=== PATIENT | female | born 1980 | race African-American/Black ===

== ENCOUNTER 2019-11-03 18:23 | Emergency (ER) | payer OTHER, SELFPAY ==
[2019-11-03 18:31] VITALS: BP 120/65; PULSE 74; RESP 18; TEMP 35.9; O2SAT 100
--- NOTE | 2019-11-03 19:10 | ED.GENADULT ---
HPI - General Adult General Chief complaint: Urogenital-Female Stated complaint: pos kidney infection History of Present Illness HPI narrative: Patient is a 39-year-old -[place] female presents to the urgent care via POV for evaluation of urinary symptoms that began 3 days ago. Additionally, she reports dysuria, abdominal pressure, urinary frequency, and urinary urgency. She also reports multiple incontinent episodes secondary to urinary urgency. Mild relief with Azo. Urinating worsens symptoms. No relief with increase water intake and cranberry. History of UTIs and nephrolithiasis. Today symptoms are similar to UTIs. She states in the past her kidney stones caused severe back pain. Denies history of pyelonephritis.. Pertinent negatives: fever, chills, sweats, change in appetite, poor p.o. intake, malaise, recent weight loss, myalgias, lymphadenopathy, headache, dizziness, STD exposure, painful intercourse, abdominal pain, constipation, nausea, vomiting, diarrhea, abdominal cramping, hematuria, back pain, urinary incontinence, vaginal bleeding/discharge, shortness of breath, chest pain, and heart palpitations/murmurs. Related Data Home Medications Medication Instructions Recorded Confirmed citalopram mg 11/03/19 levothyroxine 11/03/19 multivitamin [Tab-A-Celestina] tablet 11/03/19 Allergies Allergy/AdvReac Type Severity Reaction Status Date / Time No Known Allergies Allergy Verified 11/03/19 18:40 Review of Systems Review of Systems: Narrative: All other systems reviewed and are negative PMFSH Social History Social History Gender identity (if verbalized by the patient): Female Comments I have reviewed and agree with the patient's past medical, surgical, social, and family hx as documented by the RN. There is no relevant family history pertinent to the presenting complaint. Exam Narrative: Exam Narrative: GENERAL: Well-appearing, well-nourished, and in no acute distress. HEAD: Normocephalic, atraumatic. NECK: Supple. No lymphadenopathy or nuchal rigidity. CHEST: Lung sounds are clear to auscultation in bilateral lung burk. No respiratory distress. HEART: Regular rate and rhythm. No murmur, gallop, or rub heard. ABDOMEN: Soft, non-tender, non-distended, normal active bowel sounds in all quadrants. No guarding. No rebound tenderness. No pulsatile or palpable abdominal mass(es). No CVATGU: Bladder non-distended, non-tender EXTREMITIES: Normal range of motion. No edema. SKIN: Warm, dry, no rash. No skin color changes. Excellent turgor. NEURO: No focal deficits. Alert and oriented x3. Course Vital Signs Vital signs: Vital Signs Temperature 96.6 F L 11/03/19 18:31 Pulse Rate 74 11/03/19 18:31 Respiratory Rate 18 11/03/19 18:31 Blood Pressure 120/65 11/03/19 18:31 Pulse Oximetry 100 11/03/19 18:31 Temperature 96.6 F L 11/03/19 18:31 Pulse Rate 74 11/03/19 18:31 Respiratory Rate 18 11/03/19 18:31 Blood Pressure 120/65 11/03/19 18:31 Pulse Oximetry 100 11/03/19 18:31 Medical Decision Making Differential Diagnosis Differential Diagnosis: Nephrolithiasis, urinary tract infection, pyelonephritis, frequency of micturition, dysuria Medical Records Medical records reviewed: Yes I reviewed the patient's medical records. Vital Signs Vital Signs: Vital Signs Temperature 96.6 F L 11/03/19 18:31 Pulse Rate 74 11/03/19 18:31 Respiratory Rate 18 11/03/19 18:31 Blood Pressure 120/65 11/03/19 18:31 Pulse Oximetry 100 11/03/19 18:31 Temperature 96.6 F L 11/03/19 18:31 Pulse Rate 74 11/03/19 18:31 Respiratory Rate 18 11/03/19 18:31 Blood Pressure 120/65 11/03/19 18:31 Pulse Oximetry 100 11/03/19 18:31 Lab Data Lab results reviewed: Yes I reviewed the patient's lab results. Labs: Urine Glucose Negative Reference Range: Negative Urine Bilirubin
== END 2019-11-03 19:19 | disposition home or self-care (01) ==
PROVIDERS: Emergency Provider Nurse Practitioner Family; PCP Internal Medicine Infectious Disease
DX: N30.90 Cystitis, unspecified without hematuria (principal); Z87.442 Personal history of urinary calculi
CPT/HCPCS: 81003; 87077; 87086; 87088; 99213; G0463